=== PATIENT | male | born 1990 | race Caucasian/White ===

== ENCOUNTER → 2016-10-23 | Outpatient (REF) | payer OTHER | LOC: M LAB REF 08:28 | PROVIDERS: ATTEND Physician Assistant | DX: R19.7 Diarrhea, unspecified (principal) ==

== ENCOUNTER → 2017-08-27 | Outpatient (CLI) | payer OTHER ==
[2017-08-27 19:57] LABS: FREE T4 1.26 NG/DL (0.76-1.46)
== END ==
LOC: M WUC 15:35
DX: E03.9 Hypothyroidism, unspecified (principal)
CPT/HCPCS: 84443